=== PATIENT | male | born 1955 | race Caucasian/White ===

== ENCOUNTER → 2017-06-08 | Outpatient (CLI) | payer OTHER ==
[~2017-06-08] MED LIST: MELOXICAM15 MG PO; NORFLEX100 MG PO; OMEGA-31000 M1 PO; Z.0.ASPIRIN CHEW81 M PO; Z.0.BENICAR20 MG PO; Z.0.CALCIUM 500+VI1 PO; Z.0.LIPITOR80 MG PO; Z.0.METOPROLOL SUCC2 PO; Z.0.MULTIVITAMINS1 E PO; Z.0.NEURONTIN300 MG PO; Z.0.NITROGLYCERIN0.4 SL; Z.0.PANTOPRAZOLE SO4 PO; Z.0.PLAVIX75 MG PO; Z.0.VITAMIN C1000 MG PO; Z.0.WELCHOL625 MG PO; Z.0.ZETIA10 MG PO
== END ==
LOC: NPA 10:00
DX: R69 Illness, unspecified (principal)
CPT/HCPCS: 36415; 80053; 85025

== ENCOUNTER → 2017-06-14 | Outpatient (CLI) | payer OTHER ==
[2017-06-14 19:12] LABS: BASOPHILS % 0.1 % (0.0-1.0); EOSINOPHILS % 0.5 % (0.0-6.0); HEMATOCRIT 31.2 % (38.2-49.6); HEMOGLOBIN 10.4 g/dL (14.0-18.0); LYMPHOCYTES % 1.4 % (18.0-39.1); MEAN CORPUSCULAR HEMOGLOBIN 28.9 pg (28-32); MEAN CORPUSCULAR HGB CONC 33.3 g/dL (31-35); MEAN CORPUSCULAR VOLUME 86.7 fL (81-99); MONOCYTES % 0.9 % (4.4-11.3); NEUTROPHILS % 3.9 % (38.7-80.0); PLATELET COUNT 641 x10e3/uL (140-360); RED CELL DISTRIBUTION WIDTH 16.8 % (11.7-14.4); SODIUM 133 mmol/L (136-145)
[2017-06-14 19:13] LABS: ALANINE AMINOTRANSFERASE 63 IU/L (0-55); ALBUMIN 2.2 g/dL (3.5-5.0); ALBUMIN/GLOBULIN RATIO 0.6 (0.8-2.0); ALKALINE PHOSPHATASE 201 IU/L (40-150); ANION GAP 13.1 mmol/L (8-16); BLOOD UREA NITROGEN 10 mg/dL (7-26); BUN/CREATININE RATIO 19 (6-25); CALCIUM 9.3 mg/dL (8.4-10.2); CARBON DIOXIDE 24 mmol/L (22-29); CHLORIDE 100 mmol/L (98-107); CREATININE, SERUM 0.54 mg/dL (0.72-1.25); EST GLOMERULAR FILTRATION RATE > 60 ML/MIN (60-); GLUCOSE 91 mg/dL (74-118); POTASSIUM 4.1 mmol/L (3.5-5.1)
== END ==
LOC: NPA 09:00
PROVIDERS: ATTEND Internal Medicine
DX: Z02.89 Encounter for other administrative examinations (principal)
CPT/HCPCS: 36415; 80053; 85025

== ENCOUNTER → 2017-06-15 | Outpatient (CLI) | payer OTHER | LOC: NPA 17:00 | DX: Z02.89 Encounter for other administrative examinations (principal) ==

== ENCOUNTER → 2017-06-17 | Outpatient (CLI) | payer OTHER | LOC: NPA 09:00 | DX: Z02.89 Encounter for other administrative examinations (principal) | CPT/HCPCS: 87071; 87186; 87205 ==